=== PATIENT | female | born 1990 | race Caucasian/White ===

== ENCOUNTER 2023-03-18 18:52 | Emergency (ER) | payer OTHER, SELFPAY ==
[2023-03-18] VITALS (7 sets, daily range): BP systolic 116–140; BP diastolic 60–74; PULSE 59–72; RESP 18; TEMP 37.1; O2SAT 96–100; BMI 42.9
[2023-03-18] MEDS: PANTOPRAZOLE 40 MG VIAL 80 MG IV (19:30)
[2023-03-18] MEDS: ONDANSETRON 4 MG/2 ML INJ IV (19:30)
[2023-03-18 19:42] LABS: Add Manual Diff / Slide Review NO; Basophils Absolute Auto 100 /uL (0-100); Basophils Percent Auto 0.7 % (0-2); Eosinophils Absolute Auto 200 /uL (0-450); Eosinophils Percent Auto 1.2 % (2-4); Hematocrit 42.3 % (36-46); Hemoglobin 14.3 g/dL (12.0-16.0); Lymphocytes Absolute Auto 2800 /uL (1100-4500); Lymphocytes Percent Auto 18.4 % (25-40); Mean Corpuscular HGB Conc 33.8 % (30-36); Mean Corpuscular Hemoglobin 27.1 PG (26-34); Mean Corpuscular Volume 80.4 fL (80-100); Monocytes Absolute Auto 900 /uL (0-900); Monocytes Percent Auto 6.1 % (3-14); Neutrophils Absolute Auto 11300 /uL (1500-7000); Neutrophils Percent Auto 73.6 % (50-75); Platelet Count 366 X10^3/uL (150-400); Red Blood Cell Count 5.26 X10^6/uL (4.0-5.2); Red Cell Distribution Width 14.5 % (11.6-14.8); White Blood Cell Count 15.3 X10^3/uL (4.5-11.0)
[2023-03-18 19:45] LABS: INR 1.1 (0.9-1.3); Prothrombin Time 12.7 SECONDS (10.1-12.7)
[2023-03-18 19:48] LABS: PTT Partial Thromboplastin Tim 29 SECONDS (26-36)
[2023-03-18 19:50] LABS: Alanine Aminotransferase 16 IU/L (<35); Albumin 4.5 g/dL (3.5-5.0); Albumin Globulin Ratio 1.1 (1.0-2.8); Alkaline Phosphatase 60 U/L (38-126); Aspartate Aminotransferase 25 IU/L (14-36); BUN Creatinine Ratio 18.5 (6-22); Bilirubin Total 0.8 mg/dL (0.2-1.3); Blood Urea Nitrogen 12 mg/dL (7-17); Calcium 8.7 mg/dL (8.4-10.2); Carbon Dioxide 25 mmol/L (22-32); Chloride 103 mmol/L (98-107); Estimated Glomerular Filt Rate > 60 mL/min (>60); Globulin 4.1 g/dL (1.7-4.1); Glucose 86 mg/dL (70-100); HEMOLYSIS 40 (0-50); Potassium 4.1 mmol/L (3.4-5.1); Sodium 137 mmol/L (137-145); Total Protein 8.6 g/dL (6.3-8.2)
[2023-03-18 20:01] LABS: Bacteria Urine Moderate (10-30); Mucus Urine 1+ (Negative); RBC Urine 1-5/HPF (0-5/HPF); Transitional Epi Cells Urine 1-5/HPF (0-5/HPF)
[2023-03-18 20:02] LABS: Squamous Epithelial Cell Urine 5-10 /HPF (0-5/HPF)
[2023-03-18 20:03] LABS: Culture Indicated Urine Specimen Cultured; WBC Urine 5-10/HPF (0-5/HPF)
--- NOTE | 2023-03-18 21:24 | ED_ITS ---
HPI - GI Bleed General Chief complaint: GI Bleed Stated complaint: vomiting Time Seen by Provider: 03/18/23 21:24 Source: patient Mode of arrival: Ambulatory History of Present Illness HPI Narrative: Patient is a healthy 33-year-old female presenting today with hematemesis. He reports feeling nauseous last night today she threw up handful of times. The 1st time it was just yellow bile 2nd time she had small spots of bright red blood the 3rd time was a little bit more. She is not vomited since she is been in the ED. No diarrhea no significant abdominal pain or fever. No one else is sick at home. Denies any chest pain or palpitations or shortness of breath. Related Data Previous Rx's Medication Instructions Recorded ondansetron 4 mg disintegrating 4 mg PO Q8H PRN nausea and 03/18/23 tablet vomiting #20 tabs Allergies Allergy/AdvReac Type Severity Reaction Status Date / Time amoxicillin Allergy Rash Verified 03/18/23 19:03 Review of Systems Review of Systems ROS Unobtainable: All systems reviewed & are unremarkable except as noted in HPI and below Patient History Social History Smoking Status: Current every day smoker Smoking Status: Current every day smoker tobacco type: vaping alcohol intake frequency: holidays/special occasions only Substance Use Type: marijuana Exam Initial Vital Signs Initial Vital Signs: Vital Signs Temperature 98.8 F 03/18/23 19:03 Pulse Rate 72 03/18/23 19:03 Respiratory Rate 18 03/18/23 19:03 Blood Pressure 140/74 03/18/23 19:03 Pulse Oximetry 100 03/18/23 19:03 Oxygen Delivery Method Room Air 03/18/23 19:03 GENERAL: Alert well-appearing 33-year-old female BMI 42 and in no acute distress. HEENT: Head atraumatic,EOMI, pupils reactive, face symmetric, moist mucous membranes CARDIOVASCULAR: Regular rate and rhythm without murmurs, rubs or gallops. RESPIRATORY: Breath sounds equal bilaterally, no wheezes rales or rhonchi. ABDOMEN: Soft, nontender. Normoactive bowel sounds all 4 quadrants. No guard ing or rebound. EXTREMITIES: Normal range of motion, no clubbing or edema. Neurovascularly intact NEUROLOGICAL: Alert and oriented x4. SKIN: Warm, dry, no laceration, no petechiae, no rashes or lesions. Course Orders Ordered: ED Orders 03/18/23 19:10 EKG-12 Lead Stat 03/18/23 19:19 Urine Culture Stat Urine Microscopic Stat 03/18/23 19:30 Complete Blood Count AUTO DIFF Stat Comprehensive Metabolic Panel Stat PTT Partial Thromboplastin Kamaljit Stat Prothrombin Time INR Stat Type and Screen Stat Discontinued Medications Ondansetron HCl (Ondansetron 4 Mg/2 Ml Inj) 4 mg IV NOW PRN PRN Reason: Nausea And Vomiting Last Admin: 03/18/23 19:30 Dose: 4 mg Documented By: Ondansetron HCl (Ondansetron 4 Mg Odt) 4 mg SL NOW PRN PRN Reason: Nausea And Vomiting Ondansetron HCl (Ondansetron 4 Mg Odt Prepack) 1 bottle MISC SEEINSTR ONE Stop: 03/18/23 21:40 Last Admin: 03/18/23 21:43 Dose: 1 bottle Documented By: Pantoprazole Sodium (Pantoprazole 40 Mg Vial) 80 mg IV NOW ONE Stop: 03/18/23 19:11 Last Admin: 03/18/23 19:30 Dose: 80 mg Documented By: Vital Signs Vital signs: Vital Signs - 8 hr 03/18/23 19:03 03/18/23 19:38 03/18/23 19:39 Temperature 98.8 F Pulse Rate 72 64 64 Respiratory Rate 18 Blood Pressure 140/74 Pulse Oximetry 100 99 98 Oxygen Delivery Method Room Air 03/18/23 19:39 03/18/23 20:00 03/18/23 20:00 Temperature Pulse Rate 68 Respiratory Rate Blood Pressure 126/71 118/60 Pulse Oximetry 96 Oxygen Delivery Method 03/18/23 20:30 03/18/23 20:30 03/18/23 21:00 Temperature Pulse Rate 66 Respiratory Rate 18 Blood Pressure 120/63 116/61 Pulse Oximetry 97 Oxygen Delivery Method 03/18/23 21:00 03/18/23 21:30 03/18/23 21:30 Temperature Pulse Rate 59 L 67 Respiratory Rate Blood Pressure 125/73 Pulse Oximetry 97 99 Oxygen Delivery Method MDM - GI Bleed Lab Data 03/18/23 19:30 03/18/23 19:30 Labs: Lab Results 03/18/23 03/18/23 03/18/23 Range/Units 19:19 19:30 19:30 WBC 15.3 H (4.5-11.0) X10^3/uL RBC 5.26 H (4.0-5.2) X10^6/uL Hgb 14.3 (12.0-16.0) g/dL Hct 42.3 (36-46) % MCV 80.4 (80-100) fL MCH 27.1 (26-34) PG MCHC 33.8 (30-36) % RDW 14.5 (11.6-14.8) % Plt Count 366 (150-400) X10^3/uL Neut % (Auto) 73.6 (50-75) % Lymph % (Auto) 18.4 L (25-40) % Howard % (Auto) 6.1 (3-14) % Eos % (Auto) 1.2 L (2-4) % Baso % (Auto) 0.7 (0-2) % Neut # (Auto) 96765 H (4826-5772) /uL Lymph # (Auto) 2800 (0999-5104) /uL Howard # (Auto) 900 (0-900) /uL Eos # (Auto) 200 (0-450) /uL Baso # (Auto) 100 (0-100) /uL PT 12.7 (10.1-12.7) SECONDS INR 1.1 (0.9-1.3) APTT 29 (26-36) SECONDS Sodium (137-145) mmol/L Potassium (3.4-5.1) mmol/L Chloride (98-107) mmol/L Carbon Dioxide (22-32) mmol/L BUN (7-17) mg/dL Creatinine (0.52-1.04) mg/dL Estimated GFR (>60) mL/min BUN/Creatinine Ratio (6-22) Glucose (70-100) mg/dL Calcium (8.4-10.2) mg/dL Total Bilirubin (0.2-1.3) mg/dL AST (14-36) IU/L ALT (<35) IU/L Alkaline Phosphatase (38-126) U/L Total Protein (6.3-8.2) g/dL Albumin (3.5-5.0) g/dL Globulin (1.7-4.1) g/dL Albumin/Globulin Ratio (1.0-2.8) Urine RBC 1-5/hpf (0-5/HPF) Urine WBC 5-10/hpf H (0-5/HPF) Ur Squamous Epith Cells 5-10 /hpf H (0-5/HPF) Ur Transition Epith Cell 1-5/hpf (0-5/HPF) Urine Bacteria Moderate (10-30) H (None) Urine Mucus 1+ H (Negative) Ur Culture Indicated? Specimen cultured Blood Type Antibody Screen 03/18/23 03/18/23 Range/Units 19:30 19:30 WBC (4.5-11.0) X10^3/uL RBC (4.0-5.2) X10^6/uL Hgb (12.0-16.0) g/dL Hct (36-46) % MCV (80-100) fL MCH (26-34) PG MCHC (30-36) % RDW (11.6-14.8) % Plt Count (150-400) X10^3/uL Neut % (Auto) (50-75) % Lymph % (Auto) (25-40) % Howard % (Auto) (3-14) % Eos % (Auto) (2-4) % Baso % (Auto) (0-2) % Neut # (Auto) (2964-0887) /uL Lymph # (Auto) (1968-5512) /uL Howard # (Auto) (0-900) /uL Eos # (Auto) (0-450) /uL Baso # (Auto) (0-100) /uL PT (10.1-12.7) SECONDS INR (0.9-1.3) APTT (26-36) SECONDS Sodium 137 (137-145) mmol/L Potassium 4.1 (3.4-5.1) mmol/L Chloride 103 (98-107) mmol/L Carbon Dioxide 25 (22-32) mmol/L BUN 12 (7-17) mg/dL Creatinine 0.65 (0.52-1.04) mg/dL Estimated GFR > 60 (>60) mL/min BUN/Creatinine Ratio 18.5 (6-22) Glucose 86 (70-100) mg/dL Calcium 8.7 (8.4-10.2) mg/dL Total Bilirubin 0.8 (0.2-1.3) mg/dL AST 25 (14-36) IU/L ALT 16 (<35) IU/L Alkaline Phosphatase 60 (38-126) U/L Total Protein 8.6 H (6.3-8.2) g/dL Albumin 4.5 (3.5-5.0) g/dL Globulin 4.1 (1.7-4.1) g/dL Albumin/Globulin Ratio 1.1 (1.0-2.8) Urine RBC (0-5/HPF) Urine WBC (0-5/HPF) Ur Squamous Epith Cells (0-5/HPF) Ur Transition Epith Cell (0-5/HPF) Urine Bacteria (None) Urine Mucus (Negative) Ur Culture Indicated? Blood Type B Positive Antibody Screen Negative Point of Care Testing Test Results Negative Urine Dip Bedside Urine Glucose Negative Bedside Urine Bilirubin - Negative Bedside Urine Ketone - Negative Urine Specific Barton 1.025 Bedside Urine Occult Blood - Negative Bedside Urine pH 6.0 Bedside Urine Protein +/- 15 Bedside Urine Urobilinogen - Negative Bedside Urine Nitrite - Negative Bedside Urine Leukocytes - Negative Esterase MDM Narrative Medical decision making narrative: Patient presenting with vomiting and hematemesis. She denies any alcohol use or known varices. Had a small amount of bright red blood probably a small Batsheva- De Jesus tear. She is been in the ED for couple of hours no further vomiting. Hemodynamically stable. She is not on any antiplatelet or anticoagulation medication. Having symptoms consistent with a gastroenteritis. Tolerating fluids. Blood work has been reviewed. No evidence of anemia, she has some mild leukocytosis of 15, no electrolyte abnormality or CLAUDY She was given Zofran and Protonix in the ED. discussed with her oral rehydration technique and what to do at home and when to return to ED. Discharge Plan Departure Patient Disposition: Home Clinical Impression: Hematemesis, Gastritis Instructions: DI for Gastritis, Batsheva De Jesus Syndrome Activity Restrictions/Additional Instructions: *You have been diagnosed with gastroenteritis *What to do: Increase fluids as tolerated recommend Gatorade or Gatorade like product, avoid the red colored ones, advance diet as tolerated *Continue to take medications as directed Zofran 4 mg every 8 hours if needed for nausea vomiting--> [facility] *Follow up with your primary care provider in 2-3 days or call [phone] *Return to ER if you should have persistent vomiting, vomiting up handfuls of bright red blood, dizziness lightheadedness worsening abdominal pain or any new, worsening or concerning symptoms Prescriptions: New ondansetron 4 mg tablet,disintegrating 4 mg PO Q8H PRN (Reason: nausea and vomiting) Qty: 20 0RF Stand Alone Forms: Patient Portal/API
[2023-03-18] MEDS: ONDANSETRON 4 MG ODT PREPACK 1 BOTTLE MISC (21:43)
== END 2023-03-18 21:45 | disposition home or self-care (01) ==
PROVIDERS: Emergency Provider Emergency Medicine
DX: K92.0 Hematemesis (principal); K29.70 Gastritis, unspecified, without bleeding
CPT/HCPCS: 36415; 80053; 81003; 81015; 81025; 85025; 85610; 85730; 86850; 86900; 86901; 87086; 93005; 93010; 96374; 96375; 99284; C9113; J2405